=== PATIENT | male | born 1990 ===

== ENCOUNTER 2021-12-19 14:07 | Emergency (ER) | payer SELFPAY ==
--- NOTE | 2021-12-19 14:32 | ED General ---
General Chief Complaint: General Problems/Pain Stated Complaint: CHEST PAIN; ALTERED VISION; RT LEG TINGLING; [facility] Nursing Triage Note: PT REPORTS ALST NIGHT HE HAD A HEADACHE, RT ANKLE AND BOURNE NUMBNESS. HE REPORTS BEING REALLY TIRED. NO COMPLAINTS OF PAIN TODAY. Source of Information: Patient, RN/MD Exam Limitations: No Limitations History of Present Illness Date Seen by Provider: Dec 19, 2021 Time Seen by Provider: 14:09 Initial Comments 31-year-old male with no pertinent past medical history coming in due to headache as a referral from the urgent care. He states he used to get them regularly, but the last one was almost a year ago. They typically last less than an hour, and relatively quick onset and quick and ending. Last night he started developing right-sided head pain with vision changes in his right eye at that time. This is pretty typical to prior episodes. It lasted 40 minutes before it went away by itself. He did not take any medicines for it. He states he is asymptomatic at this time and completely back to normal. He also noted a little bit of tingling on the bottom of his foot on the right as well as a small portion of his bourne on the right. Denies any back pain, falls, trauma, weakness, true numbness anywhere, current headache, current vision changes, chest pain, shortness of breath, abdominal pain, nausea, vomiting, diarrhea, rash, or any other concerns. Allergies and Home Medications Allergies Coded Allergies: No Known Drug Allergies (Unverified , 12/19/21) Patient Home Medication List Home Medication List Reviewed: Yes Review of Systems Review of Systems Constitutional: No fever EENTM: see HPI Respiratory: no symptoms reported Cardiovascular: no symptoms reported Gastrointestinal: no symptoms reported Genitourinary: no symptoms reported Musculoskeletal: no symptoms reported Skin: no symptoms reported Psychiatric/Neurological: See HPI Hematologic/Lymphatic: No Symptoms Reported Immunological/Allergic: no symptoms reported All Other Systems Reviewed Negative Unless Noted: Yes Past Swlyjhq-Xzttia-Uffmgh Hx Patient Social History Tobacco Use?: Yes Tobacco type used: Cigarettes Smoking Status: Current Everyday Smoker Use of E-Cig and/or Vaping dev: No Substance use?: No Alcohol Use?: No Pt feels they are or have been: No Past Medical History Surgeries: No Physical Exam Vital Signs Vital Signs - First Documented 12/19/21 14:15 Temp 36.7 Pulse 97 Resp 18 B/P (MAP) 145/87 (106) Pulse Ox 98 Capillary Refill : Less Than 3 Seconds Height, Weight, BMI Height: '" Weight: lbs. oz. kg; BMI Method: General Appearance: No Apparent Distress, WD/WN Eyes: Bilateral Eye Normal Inspection, Bilateral Eye PERRL, Bilateral Eye EOMI HEENT: PERRL/EOMI, TMs Normal, Normal ENT Inspection, Pharynx Normal Neck: Full Range of Motion, Normal Inspection, Non Tender, Supple Respiratory: Chest Non Tender, Lungs Clear, Normal Breath Sounds, No Accessory Muscle Use, No Respiratory Distress Cardiovascular: Regular Rate, Rhythm, No Edema, Normal Peripheral Pulses Gastrointestinal: Normal Bowel Sounds, Non Tender, Soft Back: Normal Inspection, No CVA Tenderness Extremity: Normal Capillary Refill, Normal Inspection, Normal Range of Motion, Non Tender, No Calf Tenderness, No Pedal Edema Neurologic/Psychiatric: Alert, Oriented x3, No Motor/Sensory Deficits, Normal Mood/Affect, senior principal II-XII Norm as Tested, Other (Normal gait, normal [id number]-[id number], normal wdij-vx-dxft, normal visual acuity, normal visual winkler) Skin: Normal Color, Warm/Dry Lymphatic: No Adenopathy Progress/Results/Core Measures Suspected Sepsis SIRS Temperature: Pulse: 97 Respiratory Rate: 18 Blood Pressure 145 /87 Mean: 106 Results/Orders Vital Signs/I&O 12/19/21 14:15 Temp 36.7 Pulse 97 Resp 18 B/P (MAP) 145/87 (106) Pulse Ox 98 Capillary Refill : Less Than 3 Seconds Blood Pressure Mean: 106 Progress Note : Progress Note 31-year-old male presenting for headache that he had last night. ABCs were intact and vitals were stable on presentation. Physical exam reassuring including a normal comprehensive neuro exam. He has subjective tingling to the bottom of his foot, but has no numbness on exam. Normal bilateral distal pulses and capillary refill. No signs of limb ischemia. Denies ever having any chest pain yesterday or today. The symptoms have been completely gone and he has been normal at his baseline since last night. These episodes sound like cluster headaches, especially given his history in the past. I will have him follow-up with a neurologist as an outpatient Departure Impression Primary Impression: Cluster headache, not intractable Qualified Codes: G44.019 - Episodic cluster headache, not intractable Disposition: 01 HOME, SELF-CARE Condition: Improved Departure-Patient Inst. Decision time for Depature: 14:30 Referrals: NO,LOCAL PHYSICIAN (PCP/Family) Primary Care Physician Patient Instructions: Cluster Headache (DC) Add. Discharge Instructions: These episodes sound like an atypical cluster headache. If they occur, you can try normal things like ibuprofen and Tylenol. If they become more persistent, I want you to follow-up with a neurologist. Some options are listed below. Dr. Osman [phone] [phone] Work/School Note: Work Release Form Date Seen in the Emergency Department: Dec 19, 2021 Return to Work: Dec 20, 2021 Restrictions: No Restrictions YANNA POSADA MD Dec 19, 2021 14:32
[2021-12-19 14:33] VITALS: BP 145/87
== END 2021-12-19 14:33 | disposition home or self-care (01) ==
LOC: ER FS 14:09
DX: G44.009 Cluster headache syndrome, unspecified, not intractable (principal); F17.210 Nicotine dependence, cigarettes, uncomplicated
CPT/HCPCS: 99281